=== PATIENT | male | born 1930 | race Caucasian/White ===

== ENCOUNTER 2017-03-01 05:22 | Inpatient (IN) | payer OTHER ==
[~2017-03-01] VITALS: Ht 180.3 cm; Wt 85.3 kg
[~2017-03-01 05:22] MED LIST: AERONEB GO NEB1 EACH MC; ASPIRIN E.C.81 M1 PO; Aggrenox PO; CARDIZEM CD120 M1 PO; CARDIZEM120 MG PO; CEFDINIR300 MG PO; COMBIVENT RESPIM4 GM IH; COREG25 M1 PO; CYANOCOBALAM1000 MCG PO; DUONEB 2.5-0.5 M3 ML AEROSOL; Lopid PO; METFORMIN HCL500 M4 PO; NITROSTAT,NITR0.4 M1 SL; NOVOLOG PE100 UNITS/ SC; PRILOSEC20 MG PO; PROTONIX40 MG PO; Pepcid PO; TEMAZEPAM15 MG PO; VITAMIN D31000 UNI2 PO; ZESTRIL,PRINIVI10 M1 PO; ZOCOR10 MG PO
[2017-03-01 05:49] LABS: HEMATOCRIT 36.4 % (38.0-50.0); MCH 23.9 PG (29.0-34.0); MCHC 29.7 G/DL (30.0-36.0); MCV 80.5 FL (86-99); PLATELET COUNT 190 K/uL (156-360); RBC DIS.WIDTH-CV 17.2 % (11.8-14.6); RBC DIS.WIDTH-SD 49.3 % (39-53); RED BLOOD COUNT 4.52 M/uL (4.00-5.50); WHITE BLOOD COUNT 7.8 K/uL (4.1-10.2)
[2017-03-01 05:59] LABS: CHLORIDE 101 mEq/L (99-109); POTASSIUM 4.4 mEq/L (3.7-5.4); SODIUM 137 mEq/L (136-147)
[2017-03-01 06:00] LABS: GLUCOSE 255 mg/dL (70-99)
[2017-03-01 06:02] LABS: ANION GAP 12 MEQ/L (2-14)
[2017-03-01 06:04] LABS: GFR ESTIMATE (CALCULATED) > 59 mL/min/
[2017-03-01 06:05] LABS: UREA NITROGEN (BUN) 19 mg/dL (9-23)
[2017-03-01 06:12] LABS: TROP-I INTERPRETATION NEGATIVE; TROPONIN-I 0.02 ng/mL (0.0-0.30)
[2017-03-01 07:05] LABS: DIRECT BILIRUBIN 0.1 mg/dL (0.0-0.3); TOTAL BILIRUBIN 0.4 MG/DL (0.0-1.0)
[2017-03-01 07:11] LABS: ALKALINE PHOSPHATASE 95 IU/L (3-129); LIPASE 13 U/L (1.0-51.0)
[2017-03-01] MEDS ORDERED: IRON 100 PLUS1 EACH PO (10:28)
[2017-03-01 16:33] LABS: POINT-OF-CARE METER ID UU14100415
[2017-03-01 17:38] LABS: ADD MIUA? YES; BILIRUBIN NEGATIVE; BLOOD SMALL; COLOR YELLOW ((YELLOW)); GLUCOSE (STRIP) 50; KETONES NEGATIVE; LEUKOCYTES NEGATIVE; NITRITE NEGATIVE; PROTEIN (STRIP) 100; SPECIFIC GRAVITY 1.017 (1.000-1.030); UROBILINOGEN 0.2 MG/DL (0.2-1.0)
[2017-03-01 17:50] LABS: BACTERIA RARE /HPF; EPITHELIAL CELLS NONE SEEN /HPF; MUCUS TRACE /LPF; UCUL ADDED? NO; WHITE BLOOD CELLS 0-5 /HPF (0-5)
[2017-03-01 20:31] VITALS: BP 140/74
[2017-03-01 23:59] VITALS: BP 109/52
[2017-03-02] VITALS (7 sets, daily range): BP systolic 103–159; BP diastolic 51–75
[2017-03-02 00:12] LABS: POINT-OF-CARE METER ID UU14174216
[2017-03-02 04:22] LABS: POINT-OF-CARE METER ID UU14174216
[2017-03-02 06:38] LABS: HEMATOCRIT 29.9 % (38.0-50.0); MCH 24.3 PG (29.0-34.0); MCHC 30.8 G/DL (30.0-36.0); MCV 79.1 FL (86-99); MEAN PLAT.VOLUME 9.4 uM^3 (9.0-12.4); PLATELET COUNT 164 K/uL (156-360); RBC DIS.WIDTH-CV 17.2 % (11.8-14.6); RBC DIS.WIDTH-SD 49.8 % (39-53); RED BLOOD COUNT 3.78 M/uL (4.00-5.50); WHITE BLOOD COUNT 7.1 K/uL (4.1-10.2)
[2017-03-02 06:58] LABS: INTER. NORMALIZED RATIO 1.2; PTT 28.6 (25-32)
[2017-03-02 07:36] LABS: METH RESISTANT S AUREUS PCR NEGATIVE (NEGATIVE); PROBE CHECK PASS; SPECIMEN PROCESSING CONTROL PASS
[2017-03-02 08:04] LABS: POINT-OF-CARE METER ID UU14174216
[2017-03-02 13:16] LABS: POINT-OF-CARE METER ID UU14174216
[2017-03-02 16:43] LABS: POINT-OF-CARE METER ID UU14174216
[2017-03-03 03:36] VITALS: BP 150/65
[2017-03-03 07:30] VITALS: BP 134/58
[2017-03-03 10:01] LABS: TYPE OF FLUID PLEURAL
[2017-03-03 10:36] LABS: BODY FLUID LDH 80 IU/L; BODY FLUID PROTEIN 1.7 G/DL
[2017-03-03 10:41] LABS: BODY FLUID EOSINOPHILS 1 % (0-25); BODY FLUID RBC'S 13000 /MM^3 (0-100); BODY FLUID WBC'S 1104 /MM^3 (0-500); MONONUCLEAR WBC'S 91 %; POLYNUCLEAR WBC'S 8 % (0-25)
[2017-03-03 11:05] VITALS: BP 103/50
[2017-03-03 11:53] LABS: POINT-OF-CARE METER ID UU14162508
[2017-03-03 16:38] LABS: POINT-OF-CARE METER ID UU14162508
[2017-03-03 19:11] VITALS: BP 121/67
[2017-03-03 23:41] VITALS: BP 126/63
[2017-03-04 03:36] VITALS: BP 139/62
[2017-03-04 06:48] LABS: POINT-OF-CARE METER ID UU14162508
[2017-03-04 07:14] VITALS: BP 132/61
[2017-03-04 07:15] LABS: EOSINOPHIL (%) 2.6 % (0-5); EOSINOPHIL COUNT 0.1 K/uL (0-0.3); HEMATOCRIT 28.9 % (38.0-50.0); IMMATURE GRANULOCYTE (%) 0.5 % (0.0-0.7); INSTRUMENT ABS NEUTROPHIL CT 2.9 K/uL; LYMPHOCYTE COUNT 0.7 K/uL (1.0-2.8); MCH 24.3 PG (29.0-34.0); MCHC 30.1 G/DL (30.0-36.0); MCV 80.7 FL (86-99); MEAN PLAT.VOLUME 10.1 uM^3 (9.0-12.4); MONOCYTE (%) 11.7 % (3-12); MONOCYTE COUNT 0.5 K/uL (0-0.8); NEUTROPHIL (%) 68.3 % (45-76); NEUTROPHIL COUNT 2.9 K/uL (1.8-6.4); PLATELET COUNT 163 K/uL (156-360); RBC DIS.WIDTH-CV 17.2 % (11.8-14.6); RBC DIS.WIDTH-SD 50.6 % (39-53); RED BLOOD COUNT 3.58 M/uL (4.00-5.50)
[2017-03-04 07:16] LABS: WHITE BLOOD COUNT 4.2 K/uL (4.1-10.2)
[2017-03-04 07:35] LABS: ALKALINE PHOSPHATASE 99 IU/L (3-129); ANION GAP 8 MEQ/L (2-14); CHLORIDE 102 MEQ/L (99-109); DIRECT BILIRUBIN 0.2 mg/dL (0.0-0.3); GFR ESTIMATE (CALCULATED) > 59 mL/min/; GLUCOSE 120 mg/dL (70-99); POTASSIUM 3.8 MEQ/L (3.7-5.4); SAMPLE HEMOLYSIS CHECK 0; SAMPLE ICTERIC CHECK 0; SAMPLE LIPEMIA CHECK 0; SODIUM 140 MEQ/L (136-147); UREA NITROGEN (BUN) 14 mg/dL (9-23)
[2017-03-04 07:36] LABS: TOTAL BILIRUBIN 0.6 MG/DL (0.0-1.0)
[2017-03-04 11:24] VITALS: BP 113/59
[2017-03-04 15:31] VITALS: BP 121/58
[2017-03-04 19:03] VITALS: BP 160/71
[2017-03-04 21:00] LABS: BODY FLUID PH 7.8 (())
[2017-03-04 23:27] VITALS: BP 154/60
[2017-03-05 03:20] VITALS: BP 111/56
[2017-03-05 07:09] LABS: EOSINOPHIL (%) 1.9 % (0-5); EOSINOPHIL COUNT 0.1 K/uL (0-0.3); HEMATOCRIT 27.1 % (38.0-50.0); IMMATURE GRANULOCYTE (%) 0.2 % (0.0-0.7); INSTRUMENT ABS NEUTROPHIL CT 3.5 K/uL; LYMPHOCYTE COUNT 0.7 K/uL (1.0-2.8); MCH 24.3 PG (29.0-34.0); MCHC 30.3 G/DL (30.0-36.0); MCV 80.2 FL (86-99); MONOCYTE (%) 8.5 % (3-12); MONOCYTE COUNT 0.4 K/uL (0-0.8); NEUTROPHIL (%) 74.8 % (45-76); NEUTROPHIL COUNT 3.5 K/uL (1.8-6.4); PLATELET COUNT 152 K/uL (156-360); RBC DIS.WIDTH-CV 17.1 % (11.8-14.6); RBC DIS.WIDTH-SD 49.7 % (39-53); RED BLOOD COUNT 3.38 M/uL (4.00-5.50); WHITE BLOOD COUNT 4.7 K/uL (4.1-10.2)
[2017-03-05 07:28] LABS: ALKALINE PHOSPHATASE 105 IU/L (3-129); ANION GAP 10 MEQ/L (2-14); CHLORIDE 101 MEQ/L (99-109); GFR ESTIMATE (CALCULATED) > 59 mL/min/; GLUCOSE 134 mg/dL (70-99); POTASSIUM 3.7 MEQ/L (3.7-5.4); SAMPLE HEMOLYSIS CHECK 0; SAMPLE ICTERIC CHECK 0; SAMPLE LIPEMIA CHECK 0; SODIUM 137 MEQ/L (136-147); TOTAL BILIRUBIN 0.6 MG/DL (0.0-1.0); UREA NITROGEN (BUN) 12 mg/dL (9-23)
[2017-03-05 08:00] VITALS: BP 121/63
[2017-03-05] MEDS ORDERED: AMOX TR-K CLV1 EAC4 PO (13:59)
[2017-03-05] MEDS ORDERED: FUROSEMIDE20 MG PO (14:01)
== END 2017-03-05 15:22 | disposition home or self-care (01) | DRG 445 ==
LOC: EME → EDBD 05:22 → 2EAST 09:24 → EDOF 09:24 → 4EAST 20:04 → 2EAST 03-02 21:13
PROVIDERS: Hospitalist; Internal Medicine; Internal Medicine Pulmonary Disease
PROC: 0W993ZZ Drainage of Right Pleural Cavity, Percutaneous Approach (ICD-10-PCS; principal; 2017-03-03)
DX: K80.00 Calculus of gallbladder with acute cholecystitis without obstruction (principal); J90 Pleural effusion, not elsewhere classified; I11.0 Hypertensive heart disease with heart failure; E11.9 Type 2 diabetes mellitus without complications; I50.32 Chronic diastolic (congestive) heart failure; I25.10 Atherosclerotic heart disease of native coronary artery without angina pectoris; E78.5 Hyperlipidemia, unspecified; K21.9 Gastro-esophageal reflux disease without esophagitis; H91.93 Unspecified hearing loss, bilateral; Z98.61 Coronary angioplasty status; Z87.891 Personal history of nicotine dependence
CPT/HCPCS: 71010; 71020; 76705; 80048; 80053; 80076; 81003; 82945; 82948; 83615 91; 83690; 83880; 83986 90; 84157; 84484; 85025; 85027; 85610; 85730; 87040; 87070; 87075; 87116; 87205; 87206; 87641; 88108; 88305; 89051; 93005; 94799; 99202; 99281; 99285; J0295; J0456; J0696; J1650; J7040; J7050